=== PATIENT | female | born 1965 | race Caucasian/White ===

== ENCOUNTER → 2020-03-18 14:04 | Outpatient (BNVA) | payer MEDICAID, SELFPAY | PROVIDERS: Family Provider Family Medicine; Referring Provider Family Medicine; Visit Provider Internal Medicine | DX: C73 Malignant neoplasm of thyroid gland (principal); E89.0 Postprocedural hypothyroidism; F41.9 Anxiety disorder, unspecified | CPT/HCPCS: 99204 ==

== ENCOUNTER 2020-04-14 13:21 | Outpatient (CLI) | payer MEDICAID, SELFPAY ==
--- NOTE | 2020-04-14 13:30 | US_ITS ---
WS: [id number] THYROID ULTRASOUND HISTORY: hx of PTC, s/p resection in 2012, COMPARISON: None available. Status post thyroidectomy. No residual thyroid tissue is noted along the cervical chains or in the re gion of the thyroid bed. There are bilateral cervical chain lymph nodes. The largest lymph node in th e RIGHT neck measures 1.9 x 0.9 x 0.4 cm. There is a normal fatty hilum present. There are a few of t he lymph nodes bilaterally which are slightly rounded in shape. No obviously abnormal lymph nodes by ultrasound. US/US thyroid [id number] IMPRESSION: 1. No recurrent mass at the thyroid bed. 2. There are small cervical chain lymph nodes. The largest lymph node in the R IGHT neck is normal by ultrasound. A few of the very small lymph nodes are more rounded in appearance.
== END 2020-04-14 13:22 | disposition home or self-care (01) ==
LOC: US 13:21
PROVIDERS: PCP Family Medicine; Visit Provider Internal Medicine
DX: C73 Malignant neoplasm of thyroid gland (principal)
CPT/HCPCS: 76536

== ENCOUNTER 2020-04-14 14:26 | Emergency (ER) | payer MEDICAID, SELFPAY ==
[2020-04-14 14:27] VITALS: BP 129/92; PULSE 90; RESP 16; O2SAT 94; BMI 23.1
--- NOTE | 2020-04-14 14:45 | CT_ITS ---
WS: [id number] CT HEAD NONCONTRAST HISTORY: syncopal episode with fall TECHNIQUE: Contiguous axial imaging performed through the brain in 2.5 mm imaging. Bone and soft tiss ue windows. Sagittal and coronal reformats reviewed. All CT scans at [facility] use at le ast one of these dose optimization techniques: automated exposure control; mA and/or kV adjustment pe r patient size (includes targeted exams where dose is matched to clinical indication); or iterative r econstruction. DLP: 838.36 mGy.cm COMPARISON: None available. No acute intracranial hemorrhage, midline shift or mass effect. No atrophy or prior infarcts or herniation. Small lacunar infarct in the RIGHT caudate head. Ventricles: Normal size with no hydrocephalus. Paranasal sinuses: As visualized are clear. Mastoid air cells: Well pneumatized. Calvarium and scalp: Skull is intact with no soft tissue edema or swelling. CT/CT head wo con* [id number] IMPRESSION: 1. No acute intracranial hemorrhage or edema. 2. Prior RIGHT caudate head lacunar infarct.
--- NOTE | 2020-04-14 14:49 | ED_ITS ---
HPI - Syncope General: Chief Complaint: Syncope Stated Complaint: syncope Time Seen by Provider: 04/14/20 14:49 History of Present Illness: HPI narrative: Patient is a 55-year-old female comes to the ED after a syncopal episode. Patient has a history of thyroid cancer and has had thyroid surgically removed. Patient also has a history of anxiety. Today patient was at her doctor's office and found out that some of her thyroid cancer labs have elevated. She also had a ultrasound of the thyroid performed today. Patient says she was feeling really anxious and worried after the ultrasound today. While she was walking to her car she started feeling short of breath and had a syncopal episode. Her son was also with her and witnessed syncopal episode. Son said she fell and hit the back of her head on parking lot. Sounds is patient had a loss of consciousness for maybe 30 seconds to a minute and then came to. When patient came to she was confused and then stenting went on confusion improved and she got back to normal baseline mental status. Denies any bleeding. Patient woke up she says she had a headache. Associated symptoms: Reports headache(s); Deny abdominal pain, chest pain, fever(s) or nausea Review of Systems Const: Denies: fever(s), chills or fatigue Eyes: Denies: change in vision or eye discomfort ENMT: Denies: throat pain, odynophagia, nasal discharge or nasal congestion Card: Reports: syncope; Denies: chest pain, palpitations, edema, swelling of feet/ankles, dyspnea on exertion or orthopnea Resp: Reports: dyspnea (episodic SOB right before syncopal episode.); Denies: productive cough or non-productive cough GI: Denies: abdominal pain, nausea, vomiting, diarrhea, constipation or hematochezia : Denies: flank pain, dysuria or hematuria Musc: Denies: neck pain, back pain or extremity swelling Skin/Breast: Denies: rash or new lesions Neuro: Reports: headache(s); Denies: numbness in extremities or weakness in extremities Psych: Reports: anxiety PFS ED PFSH: Medical History Acute adjustment disorder with anxiety delivery delivered Diverticulitis Ectopic Hypertension PTSD (post-traumatic stress disorder) Surgical History H/O thyroidectomy History of laparoscopic cholecystectomy Family History Other Cancer Diabetes Social History Smoking and tobacco status: former smoker Alcohol intake: former Lives independently: Yes Marital status: Number of children: 4 Physical Exam Const: COMMON NORMALS: patient oriented x3 and alert GENERAL APPEARANCE: cooperative, comfortable and anxious (Patient is very anxious and tearful upon history and physical exam.) HENMT: COMMON NORMALS: normocephalic HEAD & SCALP: normocephalic MOUTH: Normal oral and palatal mucosa present THROAT: posterior oropharynx normal and uvula midline Eye: COMMON NORMALS: Equal, round and reactive pupils present, EOMs intact bilaterally and conjunctivae normal CONJUNCTIVA: Yes conjunctivae normal PUPIL: Yes Equal, round and reactive pupils present Neck/C-Spine: COMMON NORMALS: supple GENERAL: Yes normal visual inspection Resp: COMMON NORMALS: normal respiratory effort, No retractions, No use of accessory muscles and clear to auscultation bilaterally AUSCULTATION: clear to auscultation bilaterally Cardio: COMMON NORMALS: regular rate, regular rhythm, S1 normal heart sound present, S2 normal heart sound present, No gallops present (Cardio), No clicks present (Cardio), No murmurs present (Cardio) and Peripheral pulses 2+ throughout RATE: regular rate RHYTHM: regular rhythm HEART SOUNDS: S1 normal heart sound present and S2 normal heart sound present PERIPHERAL PULSES: Peripheral pulses 2+ throughout GI: COMMON NORMALS: Normal to inspection, nondistended, normoactive bowel sounds present, Soft to palpation, non-tender and no masses PALPATION: Yes Soft to palpation : COMMON NORMALS: Yes no CVA tenderness BLADDER/KIDNEY EXAM: Yes no CVA tenderness Back/Pelvis: COMMON NORMALS: no CVA tenderness Extremity: COMMON NORMALS: normal to inspection and no pedal edema Neuro: COMMON NORMALS: patient oriented x3, CN's II-XII intact bilaterally, moves all extremities, no focal motor deficits and no sensory deficits noted SENSORIUM/ORIENTATION: Yes alert SENSORY EXAM: Yes extremities (intact) MOTOR EXAM: 5/5 motor strength present throughout Psych: MOOD & AFFECT: Yes anxious and Yes tearful Skin: GENERAL SKIN EXAM: dry skin Course Vital Signs: Vital signs: Vital Signs Pulse Rate 91 04/14/20 17:31 Respiratory Rate 16 04/14/20 15:23 Blood Pressure 122/88 04/14/20 15:23 Pulse Oximetry 97 04/14/20 17:31 MDM - Syncope MDM Narrative: Medical decision making narrative: Patient is a 55-year-old female comes to the ED after syncopal episode. Patient has past medical history of anxiety, thyroid cancer and has post surgical hypothyroidism. Here in the ED patient is very anxious and tearful. She says that right before she had a syncopal episode she got some bad news about her thyroid cancer levels i ncreasing. She says she was very anxious and while walking to the car started to feel short of breath and had witnessed syncopal episode. Her son was with her. He says she was out for approximately 30 seconds to a minute. He says she slowly returned to baseline mental status within a few minutes after episode. He says that she did hit the back of her head when she fell. Patient is very anxious and tearful during exam and states that she does have a headache. Neuro exam was normal. CBC and CMP were unremarkable. Head CT showed no acute intracranial hemorrhage or edema. Thyroid levels were checked and patient had an elevated TSH of 5.13 but T3 and T4 were within normal range. EKG showed normal sinus rhythm with no ST segment elevation or depression seen. Troponin negative. Chest x-ray showed no acute findings. Patient was given a dose of Toradol and some IV fluids while here in the ED and her headache greatly improved. She was then given a dose of Ativan to help her anxiety. Patient diagnosed with vasovagal syncope and anxiety. Patient was discharged and told to follow-up with her PCP in 7 to 10 days for reevaluation. Return to ED precautions given. Patient understood and agreed with plan. Lab Data: Attestation: I reviewed the patient's lab results. Labs: Lab Results 04/14/20 04/14/20 04/14/20 Range/Units 16:01 16:01 16:01 WBC 7.7 (4.0-10.0) 10^3/ uL RBC 4.32 (4.1-5.3) 10^6/u L Hgb 13.6 (11.5-15.3) g/dL Hct 41.4 (37.0-47.0) % MCV 95.8 (81-99) fL MCH 31.5 (28.0-34.0) pg MCHC 32.9 (30.0-36.0) g/dL RDW 13.7 (12.1-15.1) % Plt Count 331 (130-400) 10^3/c mm MPV 10.7 H (7.4-10.4) fL Neut % (Auto) 56.7 % Lymph % (Auto) 32.1 % Hooker % (Auto) 7.0 % Eos % (Auto) 2.9 % Baso % (Auto) 1.2 % Neut # (Auto) 4.37 (1.8-7.7) 10^3/u L Lymph # (Auto) 2.5 (0.8-4.8) 10^3/u L Hooker # (Auto) 0.5 (0.2-0.9) 10^3/u L Eos # (Auto) 0.2 (0.0-0.8) 10^3/u L Baso # (Auto) 0.1 (0.0-0.1) 10^3/u L Nucleated RBC % (a uto) 0 % Nucleated RBCs # 0.0 /100WBC Sodium 144 (136-145) mmol/L Potassium 3.6 (3.5-5.1) mmol/L Chloride 104 (98-107) mmol/L Carbon Dioxide 29 (22-29) mmol/L Anion Gap 14.6 (5-19) BUN 14 (6-20) mg/dL Creatinine 0.9 (0.5-0.9) mg/dL GFR Calculation 64.8 L (90-130) mL/min Glucose 95 (65-115) mg/dL Calculated Osmolal ity 298 H (285-295) mOsm/k g Calcium 10.6 H (8.5-10.5) mg/dL Total Bilirubin 0.3 (0.15-1.2) mg/dL AST 27 (0-32) U/L ALT 25 (0-33) U/L Alkaline Phosphata se 129 H (35-105) IU/L Troponin T Baselin e 9 (0-10) ng/L Total Protein 7.5 (6.6-8.7) g/dL Albumin 4.7 (3.5-5.2) g/dL Globulin 2.8 (1.3-4.6) g/dL TSH 5.13 H (0.27-4.20) uIU/ mL Free T4 1.06 (0.82-1.77) ng/d L Free T3 2.0 (2.0-4.4) PG/ML Imaging Data^: CT Head: Attestation: I personally reviewed and interpreted this imaging study as follows: Radiologist's impression: [address] [place] [address] CT Scan Report Signed Patient: Alice Gibbons Unit #: [id number] : 1965 Age/Sex: 55 / F ADM Date: 04/14/20 Loc: ER Room/Bed: Attending Dr: Ordering Provider/Ordering MD: Jarett Rossi Date of Service: 04/14/20 Procedure(s): CT head wo con* [id number] Accession Number(s): [id number] Report Number: [id number] WS: [id number] CT HEAD NONCONTRAST HISTORY: syncopal episode with fall TECHNIQUE: Contiguous axial imaging performed through the brain in 2.5 mm imaging. Bone and soft tissue windows. Sagittal and coronal reformats reviewed. All CT scans at [facility] use at least one of these dose optimization techniques: automated exposure control; mA and/or kV adjustment per patient size (includes targeted exams where dose is matched to clinical indication); or iterative reconstruction. DLP: 838.36 mGy.cm COMPARISON: None available. No acute intracranial hemorrhage, midline shift or mass effect. No atrophy or prior infarcts or herniation. Small lacunar infarct in the RIGHT caudate head. Ventricles: Normal size with no hydrocephalus. Paranasal sinuses: As visualized are clear. Mastoid air cells: Well pneumatized. Calvarium and scalp: Skull is intact with no soft tissue edema or swelling. CT/CT head wo con* [id number] IMPRESSION: 1. No acute intracranial hemorrhage or edema. 2. Prior RIGHT caudate head lacunar infarct. Dictated By: Hailee Pham DO Signed By: Hailee Pham DO Signed Date/Time: 04/14/20 1525 DD/ 1520 CXR: Attestation: I personally reviewed and interpreted this imaging study as follows: Radiologist's impression: [address] [address] XRay Report Signed Patient: Alice Gibbons Unit #: [id number] : 1965 Age/Sex: 55 / F ADM Date: 04/14/20 Loc: ER Room/Bed: Attending Dr: Ordering Provider/Ordering MD: Jarett Rossi Date of Service: 04/14/20 Procedure(s): XR chest 1V portable [id number] Accession Number(s): [id number] Report Number: [id number] PROCEDURE INFORMATION: Exam: XR Chest, 1 View Exam date and time: 04/14/2020 3:04 PM Age: 55 years old Clinical indication: Other: Syncope; Additional info: Syncopal episode TECHNIQUE: Imaging protocol: XR of the chest Views: 1 view. COMPARISON: No relevant prior studies available. FINDINGS: Lungs: Unremarkable. No consolidation. Pleural space: Unremarkable. No pleural effusion. No pneumothorax. Heart/Mediastinum: Unremarkable. No cardiomegaly. Bones/joints: Unremarkable. XR/XR chest 1V portable [id number] IMPRESSION: No acute findings. Dictated By: Rosales George Signed By: Rosales George Signed Date/Time: 04/14/20 1550 DD/ 1549 EKG Data^: EKG 1: Attestation: I personally reviewed and interpreted this EKG as follows: EKG interpretation date: 04/14/20 Interpretation: Normal sinus rhythm, 68 bpm, no ST segment elevation or depression seen. Discharge Plan Discharge Patient Disposition: Home Clinical Impression: Anxiety, Vasovagal syncope Condition: Stable Prescriptions: No Action levothyroxine 50 mcg tablet 50 mcg PO DAILY@07 RF: 0 potassium chloride 10 mEq capsule, extended release 10 meq PO BID RF: 0 alprazolam 1 mg tablet 2 mg PO BID PRN (Reason: Anxiety) RF: 0 lisinopril-hydrochlorothiazide 20-25 mg tablet 1 tab PO DAILY@08 RF: 0 mirtazapine 15 mg tablet 15 mg PO BEDTIME PRN (Reason: SLEEP) RF: 0 alprazolam 2 mg tablet extended release 24 hr 2 mg PO DAILY@12 RF: 0 Migraine Relief 250-250-65 mg Tablet 2 tab PO BID@ RF: 0 Discharge Orders: Discharge ED (Routine); Ordered 04/14/20 Ordered By: Jarett Rossi Referrals: Kaylynn Alatorre DO [Primary Care Provider] - Discharge Diet: Regular Discharge Activity: Increase activity as tolerated Patient Instructions: Syncope (ED), Anxiety (ED) Activity Restrictions/Additional Instructions: Follow-up with medical provider as directed. Take medications as prescribed. Return to the ER or your medical provider if condition worsens. Please read and understand discharge instructions. If any questions, please ask. Labs TSH 5.13 T3 2.0 Free T4 1.06 Coding Level of Care Code ED Customer Service Technician for [employer] Exam Comprehensive
--- NOTE | 2020-04-14 14:50 | ECG_ITS ---
[facility] Test Date: 2020-04-14 Pat Name: Alice Gibbons Department: Room: Gender: Female Dining Room Cashier: : 1965 Requested By: Jarett Rossi Order Number: [id number] Leach MD: Virginia Ayon M.D. Measurements Intervals Diamond Rate: 68 P: 58 GA: 172 QRS: 28 QRSD: 97 T: 59 QT: 379 QTc: 406 Interpretive Statements SINUS RHYTHM INCOMPLETE RIGHT BUNDLE BRANCH BLOCK [90+ ms QRS DURATION, TERMINAL R IN V1/V2, 40+ ms S IN I/aVL/V4/V5/V6] No previous ECG available for comparison Electronically Signed On 04-14-2020 20:18:34 MANAGER TRAINING by Virginia Ayon M.D. [id number]
[2020-04-14 15:23] VITALS: BP 122/88; PULSE 79; RESP 16; O2SAT 96
[2020-04-14 16:14] LABS: Basophils # 0.1 10^3/uL (0.0-0.1); Basophils % 1.2 %; Eosinophils # 0.2 10^3/uL (0.0-0.8); Eosinophils % 2.9 %; Hematocrit 41.4 % (37.0-47.0); Hemoglobin 13.6 g/dL (11.5-15.3); Lymphocytes # 2.5 10^3/uL (0.8-4.8); Lymphocytes % 32.1 %; Mean Corpuscular HGB Conc 32.9 g/dL (30.0-36.0); Mean Corpuscular Hemoglobin 31.5 pg (28.0-34.0); Mean Corpuscular Volume 95.8 fL (81-99); Mean Platelet Volume 10.7 fL (7.4-10.4); Monocytes # 0.5 10^3/uL (0.2-0.9); Neutrophils # 4.37 10^3/uL (1.8-7.7); Neutrophils % 56.7 %; Nucleated Red Blood Cells % 0 %; Platelet Count 331 10^3/cmm (130-400); Red Blood Count 4.32 10^6/uL (4.1-5.3); Red Cell Distribution Width 13.7 % (12.1-15.1); White Blood Count 7.7 10^3/uL (4.0-10.0)
[2020-04-14] MEDS: sodium chloride 0.9% 500 ML 999 ML IV (16:14)
[2020-04-14] MEDS: ketorolac 30 mg/mL INJ IVP (16:14)
[2020-04-14 16:35] LABS: Troponin(5th) Baseline 9 ng/L (0-10)
[2020-04-14 16:39] LABS: Alanine Aminotransferase 25 U/L (0-33); Albumin Level 4.7 g/dL (3.5-5.2); Alkaline Phosphatase 129 IU/L (35-105); Anion Gap 14.6 (5-19); Aspartate Amino Transferase 27 U/L (0-32); Blood Urea Nitrogen 14 mg/dL (6-20); Calcium 10.6 mg/dL (8.5-10.5); Carbon Dioxide 29 mmol/L (22-29); Chloride 104 mmol/L (98-107); Free T4 Free Thyroxine 1.06 ng/dL (0.82-1.77); Globulin 2.8 g/dL (1.3-4.6); Glomerular Filtration Rate 64.8 mL/min (90-130); Glucose 95 mg/dL (65-115); Osmolality Calculated 298 mOsm/kg (285-295); Potassium 3.6 mmol/L (3.5-5.1); Sodium 144 mmol/L (136-145); Thyroid Stimulating Hormone 5.13 uIU/mL (0.27-4.20); Total Bilirubin 0.3 mg/dL (0.15-1.2); Total Protein 7.5 g/dL (6.6-8.7)
[2020-04-14] MEDS: LORazepam 2 mg/mL INJ 1 mL IVP (17:28)
[2020-04-14 17:31] VITALS: PULSE 91; O2SAT 97
== END 2020-04-14 17:36 | disposition home or self-care (01) ==
PROVIDERS: Emergency Provider Physician Assistant; PCP Family Medicine
DX: R55 Syncope and collapse (principal); F41.9 Anxiety disorder, unspecified; I10 Essential (primary) hypertension; Z87.891 Personal history of nicotine dependence
CPT/HCPCS: 12345; 70450; 71045; 80053; 84439; 84443; 84481; 84484; 85025; 93005; 96374; 96375; 99282; 99283; J1885; J2060; J7040

== ENCOUNTER → 2020-05-27 09:28 | Outpatient (BNVA) | payer BC, MEDICAID, SELFPAY | PROVIDERS: PCP Family Medicine; Visit Provider Internal Medicine | DX: C73 Malignant neoplasm of thyroid gland (principal); E89.0 Postprocedural hypothyroidism | CPT/HCPCS: 99214 ==

== ENCOUNTER → 2020-07-24 14:27 | Outpatient (BNVA) | payer BC, MEDICAID, SELFPAY | PROVIDERS: PCP Family Medicine; Visit Provider Internal Medicine | DX: C73 Malignant neoplasm of thyroid gland (principal); E89.0 Postprocedural hypothyroidism | CPT/HCPCS: 99214 ==

== ENCOUNTER → 2020-12-08 11:23 | Outpatient (BNVA) | payer BC, MEDICAID, SELFPAY | PROVIDERS: PCP Family Medicine; Visit Provider Internal Medicine | DX: C73 Malignant neoplasm of thyroid gland (principal); E89.0 Postprocedural hypothyroidism; F41.9 Anxiety disorder, unspecified | CPT/HCPCS: 84439; 84443 ==